=== PATIENT | female | born 1995 | race Caucasian/White ===

== ENCOUNTER 2023-07-29 13:21 | Emergency (ER) | payer OTHER ==
[~2023-07-29] VITALS: Ht 160 cm; Wt 83.8 kg
[2023-07-29 13:37] VITALS: BP 133/89; PULSE 91; RESP 17; TEMP 99.1; O2SAT 99
[2023-07-29] MEDS: LIDOcaine 1% W/epiNEPHrine 1:100,000 20ml vial SQ ONE (14:24)
[2023-07-29] MEDS: bacitracin 15gm ointment TP ONE (14:24)
== END 2023-07-29 14:54 | disposition home or self-care (01) ==
LOC: ER 13:22
DX: S61.012A Laceration without foreign body of left thumb without damage to nail, initial encounter (principal); W26.9XXA Contact with unspecified sharp object(s), initial encounter; Y93.89 Activity, other specified; Y92.89 Other specified places as the place of occurrence of the external cause; Y99.8 Other external cause status
CPT/HCPCS: 12001; 99282; J3490